=== PATIENT | female | born 1985 | race Caucasian/White ===

== ENCOUNTER 2016-12-05 14:12 | Emergency (ER) | payer BC ==
[2016-12-05] MEDS ORDERED: TETANUS/DIPHTHERIA/PERTUSSIS 0.5 ML SYRINGE IM ONE ×2 (14:27→14:37)
== END 2016-12-05 14:53 | disposition home or self-care (01) ==
DX: S70.311A Abrasion, right thigh, initial encounter (principal); S70.11XA Contusion of right thigh, initial encounter; W54.1XXA Struck by dog, initial encounter; Z23 Encounter for immunization; F17.200 Nicotine dependence, unspecified, uncomplicated

== ENCOUNTER 2017-01-08 21:02 | Emergency (ER) | payer BC ==
[2017-01-09] MEDS ORDERED: HYDROcod/ACETAM 5/325 MG TABLET PO STA (00:29)
[2017-01-09] MEDS ORDERED: CLINDAMYCIN 150 MG CAPSULE PO STA (00:29)
[2017-01-09] MEDS ORDERED: CLINDAMYCIN 150 MG CAPSULE PO ONE (00:37)
[2017-01-09] MEDS ORDERED: HYDROcod/ACETAM 5/325 MG TABLET ONE ×2 (00:37→00:38)
== END 2017-01-09 00:44 | disposition home or self-care (01) ==
DX: K08.89 Other specified disorders of teeth and supporting structures (principal); W54.1XXA Struck by dog, initial encounter; E78.00 Pure hypercholesterolemia, unspecified; M79.7 Fibromyalgia; F17.200 Nicotine dependence, unspecified, uncomplicated
CPT/HCPCS: 99283; A9270

== ENCOUNTER 2017-01-29 13:05 | Outpatient (CLI) | payer BC | END 2017-01-29 13:06 | disposition home or self-care (01) | DX: N85.8 Other specified noninflammatory disorders of uterus (principal); R10.2 Pelvic and perineal pain ==

== ENCOUNTER 2017-03-10 15:50 | Outpatient (CLI) | payer BC | END 2017-03-10 15:51 | disposition home or self-care (01) | DX: Z01.812 Encounter for preprocedural laboratory examination (principal); N92.0 Excessive and frequent menstruation with regular cycle; R10.2 Pelvic and perineal pain; N92.1 Excessive and frequent menstruation with irregular cycle ==

== ENCOUNTER 2017-03-12 08:10 | Day surgery (SDC) | payer BC ==
[~2017-03-12 08:10] MED LIST: ceFAZolin 2 GM/50 ML 50 ML IV ONE
[2017-03-12] MEDS ORDERED: DEXAMETHASONE 4 MG/ML VIAL IVP ONE (08:45)
[2017-03-12] MEDS ORDERED: PROPOFOL 200 MG/20 ML VIAL IVP ONE (08:45)
[2017-03-12] MEDS ORDERED: ROCURONIUM 50 MG/5 ML VIAL IVP ONE (08:45)
[2017-03-12] MEDS ORDERED: LIDOCAINE-PF 2% 10 ML AMP SUBQ ONE (08:45)
[2017-03-12] MEDS ORDERED: NEOSTIGMINE 1 MG/1 ML 10 ML MDV IVP ONE (08:45)
[2017-03-12] MEDS ORDERED: MIDAZOLAM 2 MG/2 ML VIAL IVP ONE (08:45)
[2017-03-12] MEDS ORDERED: SUCCINYLCHOLINE 200 MG/10 ML VIAL IVP ONE (08:45)
[2017-03-12] MEDS ORDERED: ACETAMINOPHEN 1,000 MG/100 ML VIAL IV ONE (08:45)
[2017-03-12] MEDS ORDERED: GLYCOPYRROLATE 1 MG/5 ML VIAL IVP ONE (08:45)
[2017-03-12] MEDS ORDERED: fentaNYL 100 MCG/2 ML VIAL IVP ONE (08:45)
[2017-03-12] MEDS ORDERED: ONDANSETRON 4 MG/2 ML VIAL IVP ONE (08:45)
[2017-03-12] MEDS ORDERED: LACTATED RINGERS 1,000 ML IV ONE ×2 (08:48→11:31)
[2017-03-12] MEDS ORDERED: BUPIVACAINE 0.25%-EPI 1:200000 PF 30 ML VIAL SUBQ ONE (09:43)
[2017-03-12] MEDS ORDERED: FUROSEMIDE 40 MG/4 ML VIAL ONE (11:12)
[2017-03-12] MEDS: HYDROmorphone 1 MG/ML SYRINGE ONE ×4 (11:58→12:33)
[2017-03-12] MEDS ORDERED: KETOROLAC 15 MG/ML VIAL ONE (12:01)
[2017-03-12] MEDS ORDERED: ONDANSETRON 4 MG/2 ML VIAL IVP PRN (13:32)
[2017-03-12] MEDS ORDERED: ALPRAZolam 0.25 MG TABLET PO PRN (13:34)
[2017-03-12] MEDS ORDERED: LACTATED RINGERS 1,000 ML IV SCH (14:00)
[2017-03-12] MEDS: HYDROcod/ACETAM 5/325 MG TABLET PO PRN ×2 (14:01→17:36)
[2017-03-12] MEDS ORDERED: ALPRAZolam 0.25 MG TABLET PO STA (18:30)
[2017-03-12] MEDS ORDERED: ZOLPIDEM 5 MG TABLET PO SCH (21:00)
== END 2017-03-12 19:15 | disposition home or self-care (01) ==
PROC: 0UTC7ZZ Resection of Cervix, Via Natural or Artificial Opening (ICD-10-PCS; 2017-03-12)
PROC: 0UB74ZZ Excision of Bilateral Fallopian Tubes, Percutaneous Endoscopic Approach (ICD-10-PCS; 2017-03-12)
PROC: 0TBB8ZX Excision of Bladder, Via Natural or Artificial Opening Endoscopic, Diagnostic (ICD-10-PCS; 2017-03-12)
PROC: 0UT9FZZ Resection of Uterus, Via Natural or Artificial Opening With Percutaneous Endoscopic Assistance (ICD-10-PCS; principal; 2017-03-12 09:00)
DX: N93.8 Other specified abnormal uterine and vaginal bleeding (principal); R10.31 Right lower quadrant pain; R10.32 Left lower quadrant pain; N84.0 Polyp of corpus uteri; M79.7 Fibromyalgia; N30.10 Interstitial cystitis (chronic) without hematuria; N30.30 Trigonitis without hematuria; N81.10 Cystocele, unspecified; F17.200 Nicotine dependence, unspecified, uncomplicated; Q50.5 Embryonic cyst of broad ligament; Z88.0 Allergy status to penicillin; Z82.49 Family history of ischemic heart disease and other diseases of the circulatory system
CPT/HCPCS: 52204; 58552; 81003; 81025; A9270; J0131; J0690; J1170; J7120

== ENCOUNTER 2017-03-17 14:19 | Outpatient (CLI) | payer BC | END 2017-03-17 14:20 | disposition home or self-care (01) | DX: R42 Dizziness and giddiness (principal); R35.0 Frequency of micturition ==

== ENCOUNTER 2017-11-25 10:14 | Emergency (ER) | payer OTHER, BC ==
--- NOTE | 2017-11-25 11:11 | XRAY Report ---
EXAM: LEFT WRIST RADIOGRAPHY EXAM DATE: 11/25/2017 10:46 AM. CLINICAL HISTORY: Left wrist pain. Schlater a pop in wrist last night while carrying heavy bucket. COMPARISON: 10/30/2013. TECHNIQUE: 4 views. FINDINGS: Bones: No fracture or bone lesion. Joints: Subluxation. Joint spaces are preserved. Soft Tissues: No soft tissue calcification. Possible mild ulnar wrist swelling. IMPRESSION: 1. No fracture, bony malalignment, or arthropathy. 2. Possible mild ulnar wrist swelling. [facility] Referring Provider Line: [phone] SITE ID: [id number]
--- NOTE | 2017-11-25 11:27 | ED Physician Documentation ---
PD HPI UPPER EXT INJURY - Stated complaint Stated Complaint: LT WRIST PX - Chief complaint Chief Complaint: Ext Problem - History obtained from History obtained from: Patient - History of Present Illness Location: Left, Wrist Type of injury: Twist (she was carrying heavy ice buckets and doing repetitive work and had onset of left wrist pain. No direct impact.) Where injury occurred: Work ([employer]) Timing - onset: Yesterday Timing - details: Gradual onset, Still present Improved by: Rest Worsened by: Moving, Palpating Associated symptoms: Weakness. 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 HEENT: None, Other Psych: Anxiety Musculoskeletal: Fibromyalgia, Fatigue Derm: None - Past Surgical History Past Surgical History: Yes General: Appendectomy, Colonoscopy - Present Medications Home Medications: Ambulatory Orders Medication Instructions Recorded Confirmed HYDROcod/ACETAM 5/325 [[place] 5/325] 1 tab PO Q6H PRN #12 tablet 11/25/17 - Allergies Allergies/Adverse Reactions: Allergies Allergy/AdvReac Type Severity Reaction Status Date / Time Penicillins Allergy vomiting Verified 04/09/16 18:17 - Social History Does the pt smoke?: Yes Smoking Status: Current every day smoker Does the pt drink ETOH?: Yes Does the pt have substance abuse?: No - Immunizations Immunizations are current?: Yes - POLST Patient has POLST: No PD ED PE NORMAL - Vitals Vital signs reviewed: Yes - General General: Alert and oriented X 3, Well developed/nourished, Other (appears uncomfortable with wrist movement extension.) - Derm Derm: Normal color, Warm and dry, No rash - Extremities Extremities: Other Results - Vitals Vitals: Oxygen O2 Source Room air - Rads (name of study) wrist Radiology: Prelim report reviewed (normal) PD MEDICAL DECISION MAKING - ED course Complexity details: reviewed results, considered differential (dorsal tendonitis , not tender volar/carpal tunnel area. ), d/w patient Departure - Departure Disposition: Home, Self Care Clinical Impression: Left wrist tendonitis Condition: Stable Record reviewed to determine appropriate education?: Yes Instructions: ED Sprain Wrist Follow-Up: KEVIN BLANKENSHIP [Primary Care Provider] - Prescriptions: HYDROcod/ACETAM 5/325 [[place] 5/325] 1 tab PO Q6H PRN #12 tablet PRN Reason: Pain Comments: Wrist splint when working in using your risk for the next several days to week. Try to lessen the degree of lifting and repetitive motion with that wrist. Use ibuprofen or naproxen 2 tablets twice daily for the next 5-6 days. Add Tylenol or hydrocodone if needed for pain. Recheck if not better over the next week. Discharge Date/Time: 11/25/17 12:02
[2017-11-25] MEDS ORDERED: HYDROcod/ACETAM 5/325 MG TABLET PO STA (11:45)
[2017-11-25 12:03] VITALS: BP 106/60
== END 2017-11-25 12:02 | disposition home or self-care (01) ==
LOC: ED 10:14
DX: M77.9 Enthesopathy, unspecified (principal); E78.00 Pure hypercholesterolemia, unspecified; F17.200 Nicotine dependence, unspecified, uncomplicated; X50.9XXA Other and unspecified overexertion or strenuous movements or postures, initial encounter; Y92.511 Restaurant or cafe as the place of occurrence of the external cause; Y99.0 Civilian activity done for income or pay
CPT/HCPCS: 1040M; 73110; 99283; A9270

== ENCOUNTER 2018-10-16 21:42 | Emergency (ER) | payer BC ==
--- NOTE | 2018-10-16 21:57 | ED Physician Documentation ---
PD HPI NVD - Stated complaint Stated Complaint: NAUSEA - Chief complaint Chief Complaint: Abd Pain - History obtained from History obtained from: Patient - History of Present Illness Timing - onset: Today Timing - details: Abrupt onset Pain level now: 2 (cramping abd. pain) Associated symptoms: Abdominal pain (cramping). No: Fever Contributing factors: No: Sick contact, Bad food, Travel, Recent antibiotics, Alcohol use, Anticoagulated, Diabetes Improved by: Other (no ameliorating factors) Worsened by: Eating Similar symptoms before: Has not had sx before Recently seen: Not recently seen - Additonal information Additional information: c/o nausea, vomiting, diarrhea, with intermittent abdominal cramping since this morning Review of Systems Constitutional: denies: Fever, Chills, Sweats GI: reports: Abdominal Pain (abdominal cramping, intermittent), Nausea, Vomiting, Diarrhea : denies: Dysuria, Frequency, Now EGA (has had hysterectomy) PD PAST MEDICAL HISTORY - Past Medical History Past Medical History: Yes Cardiovascular: High cholesterol Respiratory: None Neuro: None Endocrine/Autoimmune: None GI: None, GERD, 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 HEENT: None, Other Psych: Anxiety Musculoskeletal: Fibromyalgia, Fatigue Derm: None - Past Surgical History Past Surgical History: Yes General: Appendectomy, Colonoscopy - Present Medications Home Medications: Ambulatory Orders Medication Instructions Recorded Confirmed HYDROcod/ACETAM 5/325 [[place] 5/325] 1 tab PO Q6H PRN #12 tablet 11/25/17 Diphenoxylate/Atropine [Lomotil] 1 each PO QID PRN #10 tablet 10/16/18 Ondansetron Odt [Zofran] 4 mg TL Q6H PRN #14 tablet 10/16/18 - Allergies Allergies/Adverse Reactions: Allergies Allergy/AdvReac Type Severity Reaction Status Date / Time Penicillins Allergy vomiting Verified 04/09/16 18:17 - Social History Does the pt smoke?: Yes Smoking Status: Current every day smoker Does the pt drink ETOH?: Yes Does the pt have substance abuse?: No - Immunizations Immunizations are current?: Yes - POLST Patient has POLST: No PD ED PE NORMAL - Vitals Vital signs reviewed: Yes - General General: Alert and oriented X 3, No acute distress, Well developed/nourished - HEENT HEENT: Moist mucous membranes - Cardiac Cardiac: RRR, No murmur - Respiratory Respiratory: No respiratory distress, Clear bilaterally - Abdomen Abdomen: Normal bowel sounds, Soft, Non tender, Non distended - Back Back: No CVA TTP - Derm Derm: Normal color, Warm and dry Results - Vitals Vitals: Vital Signs - 24 hr 10/16/18 10/16/18 10/16/18 21:48 22:25 22:26 Temperature 36.2 C L Heart Rate 86 60 Respiratory 19 17 Rate Blood Pressure 122/90 H 110/72 O2 Saturation 100 99 10/16/18 10/16/18 10/16/18 22:36 23:00 23:03 Temperature Heart Rate 60 Respiratory 17 17 17 Rate Blood Pressure 117/73 O2 Saturation 100 100 100 10/16/18 10/16/18 23:21 23:36 Temperature Heart Rate 71 Respiratory 17 17 Rate Blood Pressure O2 Saturation 100 Oxygen O2 Source Room air - Labs Labs: Laboratory Tests 10/16/18 10/16/18 22:00 22:00 WBC 11.9 H RBC 4.13 L Hgb 14.0 Hct 42.0 MCV 101.7 H MCH 33.9 H MCHC 33.4 RDW 12.2 Plt Count 294 MPV 8.1 Neut # (Auto) 6.4 Lymph # (Auto) 4.8 H [place] # (Auto) 0.4 Eos # (Auto) 0.1 Baso # (Auto) 0.2 H Absolute Nucleated RBC 0.00 Nucleated RBC % 0.0 Sodium 137 Potassium 3.6 Chloride 105 Carbon Dioxide 25 Anion Gap 7.0 BUN 13 Creatinine 0.6 Estimated GFR (MDRD) 114 Glucose 93 Calcium 9.3 Total Bilirubin 0.4 AST 17 ALT 18 Alkaline Phosphatase 39 L Total Protein 7.3 Albumin 4.8 Globulin 2.5 Albumin/Globulin Ratio 1.9 Lipase 26 PD MEDICAL DECISION MAKING - ED course Complexity details: reviewed results, re-evaluated patient, considered differential, d/w patient Departure - Departure Disposition: 01 Home, Self Care Clinical Impression: Gastroenteritis Condition: Good Instructions: ED Gastroenteritis Viral Follow-Up: [facility] [place] [Provider Group] [facility] [Provider Group] Prescriptions: Diphenoxylate/Atropine [Lomotil] 1 each PO QID PRN #10 tablet PRN Reason: Diarrhea Ondansetron Odt [Zofran] 4 mg TL Q6H PRN #14 tablet PRN Reason: Nausea / Vomiting Forms: Activity restrictions Discharge Date/Time: 10/16/18 23:37
[2018-10-16] MEDS ORDERED: SODIUM CHLORIDE 0.9% 1,000 ML IV STA (22:13)
[2018-10-16] MEDS ORDERED: DIPHENOX/ATROPINE 2.5/0.025 MG TABLET PO STA (22:13)
[2018-10-16] MEDS ORDERED: ONDANSETRON 4 MG/2 ML VIAL IVP STA ×2 (22:13→23:12)
[2018-10-16] MEDS ORDERED: ACETAMINOPHEN 325 MG TABLET PO STA (22:25)
[2018-10-16 22:30] LABS: BASOPHILS # (AUTO) 0.2 10^3/uL (0.0-0.1); BASOPHILS % (AUTO) 1.4 %; EOSINOPHILS # (AUTO) 0.1 10^3/uL (0.0-0.7); EOSINOPHILS % (AUTO) 1.1 %; LYMPHOCYTES # (AUTO) 4.8 10^3/uL (1.5-3.5); MEAN CORPUSCULAR HEMOGLOBIN 33.9 pg (27.0-31.0); MEAN CORPUSCULAR HGB CONC 33.4 g/dL (32.0-36.0); MEAN CORPUSCULAR VOLUME 101.7 fL (81.0-99.0); MEAN PLATELET VOLUME 8.1 fL (7.9-10.8); MONOCYTES # (AUTO) 0.4 10^3/uL (0.0-1.0); MONOCYTES % (AUTO) 3.6 %; NEUTROPHILS # (AUTO) 6.4 10^3/uL (1.5-6.6); NEUTROPHILS % (AUTO) 53.9 %; PLT - PLATELET COUNT 294 10^3/uL (130-450); RED BLOOD COUNT 4.13 10^6/uL (4.20-5.40); RED CELL DISTRIBUTION WIDTH 12.2 % (12.0-15.0); WHITE BLOOD COUNT 11.9 x10^3/uL (4.8-10.8)
[2018-10-16 22:43] LABS: ALBUMIN 4.8 g/dL (3.2-5.5); ALBUMIN/GLOBULIN RATIO 1.9 (1.0-2.2); BILIRUBIN,TOTAL 0.4 mg/dL (0.2-1.0); CALCIUM 9.3 mg/dL (8.5-10.3); CREATININE 0.6 mg/dL (0.4-1.0); TOTAL PROTEIN 7.3 g/dL (6.7-8.2)
[2018-10-16 23:04] VITALS: BP 117/73
== END 2018-10-16 23:37 | disposition home or self-care (01) ==
LOC: ED 21:42
DX: K52.9 Noninfective gastroenteritis and colitis, unspecified (principal); R11.2 Nausea with vomiting, unspecified; F17.200 Nicotine dependence, unspecified, uncomplicated
CPT/HCPCS: 36415; 80053; 83690; 85025; 96361; 96374; 96376; 99283; 99284; A9270

== ENCOUNTER 2020-02-15 13:02 | Emergency (ER) | payer BC, MEDICAID ==
[2020-02-15 13:10] VITALS: BP 133/84
--- NOTE | 2020-02-15 13:21 | ED Physician Documentation ---
History of Present Illness - Stated complaint Stated Complaint: RIB PX/FELL - Chief complaint Chief Complaint: General - Additonal information Additional information: Here today with a a 3-4 day history of right lower anterior chest wall pain. She had a ground level, mechanical, fall while intoxicated and struck her chest wall against a speaker box. Has had continued pain that worsened just prior to her arrival. Pain is worse with deep breathes, movement, and direct palpation. Has no gross deformities. Review of Systems Constitutional: denies: Fever, Myalgias, Fatigue Ears: denies: Loss of hearing, Ear pain Throat: denies: Dental pain / toothache Cardiac: reports: Chest pain / pressure. 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 HEENT: None, Other Psych: Anxiety Musculoskeletal: Fibromyalgia, Fatigue Derm: None - Past Surgical History Past Surgical History: Yes General: Appendectomy, Colonoscopy - Present Medications Home Medications: Ambulatory Orders Medication Instructions Recorded Confirmed HYDROcod/ACETAM 5/325 [[place] 5/325] 1 tab PO Q6H PRN #12 tablet 11/25/17 Diphenoxylate/Atropine [Lomotil] 1 each PO QID PRN #10 tablet 10/16/18 Ondansetron Odt [Zofran] 4 mg TL Q6H PRN #14 tablet 10/16/18 - Allergies Allergies/Adverse Reactions: Allergies Allergy/AdvReac Type Severity Reaction Status Date / Time Penicillins Allergy vomiting Verified 02/15/20 13:10 - Social History Does the pt smoke?: Yes Smoking Status: Current every day smoker Does the pt drink ETOH?: Yes Does the pt have substance abuse?: No - Immunizations Immunizations are current?: Yes - POLST Patient has POLST: No PD ED PE NORMAL - General General: Alert and oriented X 3, Well developed/nourished - HEENT HEENT: Atraumatic - Neck Neck: Supple, no meningeal sign - Cardiac Cardiac: RRR, Other (tender to direct palpation at the right anterior lower chest wall ) - Respiratory Respiratory: No: No respiratory distress, Clear bilaterally - Derm Derm: Other (2 cm contusion at the lower right anterior chest wall ) - Neuro Neuro: Alert and oriented X 3, No motor deficit, Normal speech Motor: Obeys Commands Verbal: Oriented Results - Vitals Vitals: Vital Signs - 24 hr 02/15/20 13:07 Temperature 36.5 C Heart Rate 97 Respiratory 16 Rate Blood Pressure 133/84 H O2 Saturation 97 Oxygen O2 Source Room air PD MEDICAL DECISION MAKING - ED course Complexity details: other (Reviewed plain films agree with radiology. Results were discussed This with the patient. She will apply frequent cool compress. Use ibuprofen and Tylenol as needed for comfort. Return precautions were discussed. She will follow-up as needed for any emergent changes or concerns.) Departure - Departure Disposition: 01 Home, Self Care Clinical Impression: Acute pain Condition: Stable Comments: Apply a frequent cold compress to the affected area. Use ibuprofen and Tylenol as needed for comfort. Return to emergency room as needed for any emergent changes or concerns.
--- NOTE | 2020-02-15 14:47 | XRAY Report ---
Reason: right chest wall pain, fall Procedure Date: 02/15/2020 Accession Number: [id number] / [id number] Procedure: XR - Ribs w/PA Chest RT CPT Code: Final Report FULL RESULT: EXAM: RIGHT RIB RADIOGRAPHY EXAM DATE: 02/15/2020 02:19 PM. CLINICAL HISTORY: Right chest wall pain, fall. Fall 4 days ago onto ribs. COMPARISON: CHEST 2 VIEW PA/LAT 08/16/2016 5:23 PM. TECHNIQUE: 1 view of the chest and 2 views of the ribs. FINDINGS: Bones: No displaced fracture or bone lesion. Left convex scoliosis of partially visualized lumbar spine. Lungs: No focal opacities. No pneumothorax. No pleural effusions. Mediastinum: Heart and mediastinal contours are unremarkable. Other: None. IMPRESSION: 1. No displaced rib fracture identified. 2. No acute cardiopulmonary process. [facility]
== END 2020-02-15 15:25 | disposition home or self-care (01) ==
LOC: ED 13:02
DX: S20.211A Contusion of right front wall of thorax, initial encounter (principal); W19.XXXA Unspecified fall, initial encounter; W22.09XA Striking against other stationary object, initial encounter; R07.89 Other chest pain; F17.200 Nicotine dependence, unspecified, uncomplicated
CPT/HCPCS: 99283; 99284

== ENCOUNTER → 2020-07-03 | Outpatient (CLI) | payer MEDICAID ==
[2020-07-03 18:30] LABS: BASOPHILS # (AUTO) 0.1 10^3/uL (0.0-0.1); BASOPHILS % (AUTO) 0.5 %; EOSINOPHILS # (AUTO) 0.1 10^3/uL (0.0-0.7); EOSINOPHILS % (AUTO) 0.8 %; LYMPHOCYTES # (AUTO) 4.6 10^3/uL (1.5-3.5); LYMPHOCYTES % (AUTO) 31.7 %; MEAN CORPUSCULAR HEMOGLOBIN 33.7 pg (27.0-31.0); MEAN CORPUSCULAR HGB CONC 33.1 g/dL (32.0-36.0); MEAN CORPUSCULAR VOLUME 101.8 fL (81.0-99.0); MEAN PLATELET VOLUME 10.3 fL (7.9-10.8); MONOCYTES # (AUTO) 0.6 10^3/uL (0.0-1.0); MONOCYTES % (AUTO) 4.1 %; NEUTROPHILS # (AUTO) 8.9 10^3/uL (1.5-6.6); NEUTROPHILS % (AUTO) 61.9 %; PLT - PLATELET COUNT 301 10^3/uL (130-450); RED BLOOD COUNT 4.45 10^6/uL (4.20-5.40); RED CELL DISTRIBUTION WIDTH 12.4 % (12.0-15.0); WHITE BLOOD COUNT 14.4 x10^3/uL (4.8-10.8)
[2020-07-03 18:36] LABS: ALBUMIN 4.7 g/dL (3.2-5.5); ALBUMIN/GLOBULIN RATIO 1.7 (1.0-2.2); BILIRUBIN,TOTAL 0.5 mg/dL (0.2-1.0); CREATININE 0.6 mg/dL (0.4-1.0); TOTAL PROTEIN 7.4 g/dL (6.7-8.2)
== END ==
LOC: LAB.WCP 14:38
PROVIDERS: ATTEND Physician Assistant
DX: Z00.00 Encounter for general adult medical examination without abnormal findings (principal); D72.829 Elevated white blood cell count, unspecified
CPT/HCPCS: 36415; 80050; 80061; 83721

== ENCOUNTER 2020-08-30 13:07 | Outpatient (CLI) | payer MEDICAID ==
--- NOTE | 2020-08-31 13:18 | Mammography Report ---
BILATERAL DIGITAL DIAGNOSTIC MAMMOGRAM 3D/2D: 08/30/2020 CLINICAL: Occasional right breast pain. Comparison is made to exams dated: 08/10/2015 ultrasound, 08/10/2015 ultrasound, and 08/10/2015 mammogr [facility]. The tissue of both breasts is heterogeneously dense. This may lower the sensitivity of mammography. No significant masses, calcifications, or other findings are seen in either breast. IMPRESSION: NEGATIVE There is no abnormality seen in the right breast to correspond with the diffuse pain, however, clinic al correlation is recommended. There is no mammographic evidence of malignancy. This exam was interpreted at Station ID: [id number]. NOTE: For mammograms, a report in lay terms will be sent to the patient. Approximately 15% of breast malignancies will not be visualized mammographically. In the management of a palpable breast mass, a negative mammogram must not discourage biopsy of a clinically suspicious lesion. Electronically Signed By: Luis Manuel Paredes M.D. [email or web address]:08/30/2020 14:56:32 ACR BI-RADS Category 1: Negative 3341F PARENCHYMAL PATTERN: (D) - The breast(s) demonstrate(s) heterogeneously dense fibroglandular [place]. BI-RADS CATEGORY: (1) - 1 RECOMMENDATION: (ADDMAM) - Recommend additional mammographic views. recall n/a LATERALITY: (B)
== END 2020-08-30 13:08 | disposition home or self-care (01) ==
LOC: DI 13:07
PROVIDERS: ATTEND Physician Assistant
DX: N64.4 Mastodynia (principal)
CPT/HCPCS: 77066

== ENCOUNTER 2020-09-03 15:10 | Emergency (ER) | payer MEDICAID ==
[2020-09-03 16:18] LABS: BASOPHILS # (AUTO) 0.1 10^3/uL (0.0-0.1); BASOPHILS % (AUTO) 0.7 %; EOSINOPHILS # (AUTO) 0.2 10^3/uL (0.0-0.7); EOSINOPHILS % (AUTO) 1.3 %; HGB - HEMOGLOBIN 14.5 g/dL (12.0-16.0); LYMPHOCYTES # (AUTO) 3.1 10^3/uL (1.5-3.5); LYMPHOCYTES % (AUTO) 23.2 %; MEAN CORPUSCULAR HEMOGLOBIN 34.6 pg (27.0-31.0); MEAN CORPUSCULAR HGB CONC 34.4 g/dL (32.0-36.0); MEAN CORPUSCULAR VOLUME 100.7 fL (81.0-99.0); MEAN PLATELET VOLUME 9.7 fL (7.9-10.8); MONOCYTES # (AUTO) 0.6 10^3/uL (0.0-1.0); MONOCYTES % (AUTO) 4.8 %; NEUTROPHILS # (AUTO) 9.2 10^3/uL (1.5-6.6); NEUTROPHILS % (AUTO) 68.9 %; PLT - PLATELET COUNT 283 10^3/uL (130-450); RED BLOOD COUNT 4.19 10^6/uL (4.20-5.40); RED CELL DISTRIBUTION WIDTH 12.5 % (12.0-15.0); WHITE BLOOD COUNT 13.3 x10^3/uL (4.8-10.8)
--- NOTE | 2020-09-03 16:30 | ED Physician Documentation ---
PD HPI HEADACHE - Stated complaint Stated Complaint: HEADACHE, DIZZINESS - Chief complaint Chief Complaint: Neuro - History obtained from History obtained from: Patient - History of Present Illness Timing - onset: Today Timing - onset during: Other (shower) Timing - duration: Hours (1) Timing - details: Abrupt onset Pain level max: 8 Pain level now: 6 Location: Global Quality: Throbbing, Aching Associated symptoms: No: Fever, Stiff neck, Nausea, Vomiting, Weakness, Numbness, Syncope, Seizure, Eye pain, Vision changes Improved by: Rest Worsened by: Light, Noise Contributing factors: No: Anticoagulated, Possible carbon monoxide, Hypertension, Recent illness, Trauma Similar symptoms before: Diagnosis (headaches) Recently seen: Not recently seen - Additional information Additional information: 35-year-old female presents to the emergency department stating she was taking a shower today when she developed a headache, described as holocranial while she was in the shower today. She states she does have a history of headaches but this seems worse. Took Tylenol without relief. She states it was a sudden onset headache. No history of aneurysms. No history of recent illness. No fevers, chills, cough. Denies any possibility of . She is not breast-feeding. Review of Systems Constitutional: denies: Fever, Chills Eyes: denies: Loss of vision, Decreased vision Ears: denies: Loss of hearing, Ear pain, Drainage/discharge Nose: denies: Rhinorrhea / runny nose, Congestion, Epistaxis, Sinus pressure / p ain, Foreign Body Throat: denies: Sore throat Cardiac: denies: Chest pain / pressure Respiratory: denies: Cough GI: denies: Nausea, Vomiting, Diarrhea : denies: Now EGA Skin: denies: Rash Musculoskeletal: denies: Neck pain, Back pain Neurologic: denies: Headache PD PAST MEDICAL HISTORY - Past Medical History Cardiovascular: High cholesterol Respiratory: None Neuro: None Endocrine/Autoimmune: None GI: 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, GERD, 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 HEENT: None, Other Psych: Anxiety Musculoskeletal: Fibromyalgia, Fatigue Derm: None - Past Surgical History Past Surgical History: Yes General: Appendectomy, Colonoscopy - Present Medications Home Medications: Ambulatory Orders Medication Instructions Recorded Confirmed Metoclopramide [Reglan] 10 mg PO DAILY 08/18/20 08/18/20 Pantoprazole [Protonix] 40 mg PO DAILY 08/18/20 08/18/20 hydrOXYzine HCL [Hydroxyzine HCl] 25 mg PO DAILY PM 08/18/20 08/18/20 - Allergies Allergies/Adverse Reactions: Allergies Allergy/AdvReac Type Severity Reaction Status Date / Time Penicillins Allergy vomiting Verified 09/03/20 15:13 - Social History Does the pt smoke?: Yes Smoking Status: Current every day smoker Does the pt drink ETOH?: Yes Does the pt have substance abuse?: No - Immunizations Immunizations are current?: Yes - POLST Patient has POLST: No PD ED PE NORMAL - Vitals Vital signs reviewed: Yes - General General: Alert and oriented X 3, No acute distress - HEENT HEENT: Atraumatic, PERRL, EOMI, Ears normal, Moist mucous membranes, Pharynx benign - Neck Neck: Supple, no meningeal sign, No bony TTP - Cardiac Cardiac: RRR - Respiratory Respiratory: No respiratory distress, Clear bilaterally - Abdomen Abdomen: Soft, Non tender, Non distended - Derm Derm: Warm and dry - Extremities Extremities: No edema - Neuro Neuro: Alert and oriented X 3, 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 NIH stroke scale of 0) Eye Opening: Spontaneous Motor: Obeys Commands Verbal: Oriented GCS Score: 15 - Psych Psych: Normal mood, Normal affect Results - Vitals Vitals: Vital Signs - 24 hr 09/03/20 09/03/20 15:13 18:13 Temperature 36.5 C Heart Rate 95 85 Respiratory 16 16 Rate Blood Pressure 138/87 H 133/76 H O2 Saturation 98 99 Oxygen O2 Source Room air - Labs Labs: Laboratory Tests 09/03/20 09/03/20 09/03/20 16:12 16:13 16:13 WBC 13.3 H RBC 4.19 L Hgb 14.5 Hct 42.2 MCV 100.7 H MCH 34.6 H MCHC 34.4 RDW 12.5 Plt Count 283 MPV 9.7 Neut # (Auto) 9.2 H Lymph # (Auto) 3.1 [place] # (Auto) 0.6 Eos # (Auto) 0.2 Baso # (Auto) 0.1 Absolute Nucleated RBC 0.00 Nucleated RBC % 0.0 Sodium 139 Potassium 4.2 Chloride 105 Carbon Dioxide 22 Anion Gap 12.0 BUN 10 Creatinine 0.7 Estimated GFR (MDRD) 95 Glucose 123 H Calcium 9.2 Serum HCG, Qual NEGATIVE - Rads (name of study) CT angio head Radiology: Prelim report reviewed, EMP read contemporaneously, See rad report (No acute abnormality) PD MEDICAL DECISION MAKING - ED course Complexity details: reviewed results, re-evaluated patient, considered differential, d/w patient, d/w family ED course: Headache improved with Toradol and Fioricet. No acute findings on CT angiogram of the head. No evidence of meningitis, encephalitis, subarachnoid hemorrhage, tumor, mass. We will have her follow-up with her doctor for further care. NIH stroke scale 0. Normal cerebellar test. Normal neuro exam. Normal gait. Patient and family counseled regarding signs and symptoms for which I believe and urgent re-evaluation would be necessary. Patient with good understanding of and agreement to plan and is comfortable going home at this time This document was made in part using voice recognition software. While efforts are made to proofread this document, sound alike and grammatical errors may occur. Departure - Departure Disposition: 01 Home, Self Care Clinical Impression: Headache Qualifiers: Headache type: unspecified Headache chronicity pattern: acute headache Intractability: not intractable Qualified Code(s): R51.9 - Headache, unspecified Condition: Good Instructions: ED Cephalgia Unspecified Follow-Up: Deandra Rosales PA [Primary Care Provider] - Within 1 week Comments: Your CT and angiogram of your head are normal. There are no aneurysms or evidence of bleeding. Go home and rest tonight. Return if you worsen. Follow- up with your doctor for further care.
[2020-09-03 16:31] LABS: CALCIUM 9.2 mg/dL (8.5-10.3); CREATININE 0.7 mg/dL (0.4-1.0)
[2020-09-03] MEDS ORDERED: IOVERSOL 320 100 ML VIAL IVP ONE ×2 (16:46→17:41)
[2020-09-03] MEDS ORDERED: BUTALB/ACETAM/CAFF 50/325/40MG TABLET PO STA (17:06)
--- NOTE | 2020-09-03 17:13 | CT Report ---
PROCEDURE: ANGIO HEAD W/WO INDICATIONS: headache, holocranial CONTRAST: IV CONTRAST: Optiray 320 ml: 80 PO CONTRAST: *NO PO CONTRAST TECHNIQUE: Precontrast 4.5 mm thick angled axial sections acquired from the foramen magnum to the vertex. Afte r the administration of intravenous contrast, 1 mm thick sections acquired through the [place] of [place] is. Postcontrast 4.5 mm thick sections then re-acquired from the foramen magnum to the vertex. 3-di mensional fdmczuk-dpjgfzaeh-snumxsbqab (MIP) and/or volume rendering reformats were acquired of the c entral intracranial vasculature. For radiation dose reduction, the following was used: automated ex posure control, adjustment of mA and/or kV according to patient size. COMPARISON: 06/16/2015, head CT FINDINGS: Image quality: Diagnostic. Anterior circulation: Intracranial internal carotid arteries are normal in size and flow. The flow within the paired anterior cerebral arteries is normal and symmetric. The flow within the middle cer ebral arteries is normal and symmetric. The anterior communicating artery is not definitely seen. N o aneurysms are seen. Posterior circulation: Visualized portions of the vertebral arteries demonstrate normal caliber, and join to form a normal appearing basilar artery. Flow within the posterior cerebral arteries is norm al and symmetric. No aneurysms are seen. CSF spaces: Ventricles are normal in size and shape. Basal cisterns are patent. No extra-axial flu id collections. Brain: No midline shift. No intracranial bleeds or masses. [place]-white matter interface appears int act. Skull and face: Calvarium and facial bones appear intact, without suspicious lesions. Sinuses: Visualized sinuses and mastoids are clear. IMPRESSION: A cause of headache cannot be seen on these images. No intracranial hemorrhage is seen. No significant intracranial abnormality is seen. No masses or abnormal enhancement can be seen. No significant intracranial arterial abnormalities are seen. Reviewed by: Jorge Sarmiento MD on 09/03/2020 4:12 PM AKDT Approved by: Jorge Sarmiento MD on 09/03/2020 4:12 PM AKDT Station ID: [id number]
[2020-09-03] MEDS ORDERED: ONDANSETRON 4 MG/2 ML VIAL IVP STA (17:15)
[2020-09-03 17:31] LABS: HCG,QUALITATIVE BLOOD NEGATIVE
[2020-09-03] MEDS ORDERED: KETOROLAC 30 MG/ML VIAL IVP STA (17:59)
[2020-09-03 18:13] VITALS: BP 133/76
== END 2020-09-03 18:13 | disposition home or self-care (01) ==
LOC: ED 15:10
DX: R51.9 Headache, unspecified (principal); F17.200 Nicotine dependence, unspecified, uncomplicated
CPT/HCPCS: 36415; 70496; 80048; 84703; 85025; 96374; 96375; 99282; 99284; A9270; Q9967

== ENCOUNTER 2020-09-08 11:27 | Day surgery (SDC) | payer MEDICAID ==
[~2020-09-08 11:27] MED LIST changes: +LIDO GARGLE 30 ML BOTTLE ONE; -ceFAZolin 2 GM/50 ML 50 ML IV ONE
[2020-09-08] MEDS ORDERED: MIDAZOLAM 2 MG/2 ML VIAL IVP ONE (11:28)
[2020-09-08] MEDS ORDERED: fentaNYL 250 MCG/5 ML VIAL IVP ONE (11:28)
[2020-09-08] MEDS ORDERED: LACTATED RINGERS 1,000 ML IV ONE ×2 (11:34→12:32)
[2020-09-08 13:07] VITALS: BP 124/72
== END 2020-09-08 11:28 | disposition home or self-care (01) ==
LOC: SDS 11:27
PROVIDERS: ATTEND Surgery
PROC: 0DB78ZX Excision of Stomach, Pylorus, Via Natural or Artificial Opening Endoscopic, Diagnostic (ICD-10-PCS; 2020-09-08)
PROC: 0DB38ZX Excision of Lower Esophagus, Via Natural or Artificial Opening Endoscopic, Diagnostic (ICD-10-PCS; 2020-09-08)
PROC: 0DB48ZX Excision of Esophagogastric Junction, Via Natural or Artificial Opening Endoscopic, Diagnostic (ICD-10-PCS; 2020-09-08)
PROC: 0DB98ZX Excision of Duodenum, Via Natural or Artificial Opening Endoscopic, Diagnostic (ICD-10-PCS; principal; 2020-09-08 08:45)
DX: K21.9 Gastro-esophageal reflux disease without esophagitis (principal); R10.13 Epigastric pain; F17.200 Nicotine dependence, unspecified, uncomplicated
CPT/HCPCS: 43239; 87081; A9270; J3010; J7120

== ENCOUNTER 2021-04-12 08:00 | Outpatient (CLI) | payer MEDICAID ==
[2021-04-12 18:36] LABS: THYROID STIMULATING HORMONE 0.87 uIU/mL (0.34-5.60)
== END 2021-04-12 23:59 | disposition home or self-care (01) ==
LOC: LAB.WCP 08:00
PROVIDERS: ATTEND Physician Assistant Medical
DX: E53.8 Deficiency of other specified B group vitamins (principal)
CPT/HCPCS: 36415; 82607; 84443

== ENCOUNTER 2022-04-16 11:45 | Emergency (ER) | payer OTHER, MEDICAID ==
[2022-04-16 11:55] VITALS: BP 139/95
[2022-04-16] MEDS ORDERED: KETOROLAC 60 MG/2 ML VIAL IM STA (13:14)
--- NOTE | 2022-04-16 13:17 | ED Physician Documentation ---
History of Present Illness - Stated complaint Stated Complaint: BACK PX - Chief complaint Chief Complaint: Back Pain - History obtained from History obtained from: Patient - Additonal information Additional information: The patient comes to the emergency department chief complaint of low back pain after a straining injury last week. The patient states she was lifting a heavy trash bag at work and swung it up and over the edge of a dumpster, when she felt a twinge in her right back musculature. Patient states that she has noticed over the last week that the pain seems to have migrated into her low back and right buttock and that she has pain shooting down her right leg. No numbness or tingling. No weakness. No loss of bowel or bladder function. No abdominal pain. No other injuries. Review of Systems Ten Systems: 10 systems reviewed and negative Constitutional: reports: Reviewed and negative Eyes: reports: Reviewed and negative Ears: reports: Reviewed and negative Nose: reports: Reviewed and negative Throat: reports: Reviewed and negative Cardiac: reports: Reviewed and negative Respiratory: reports: Reviewed and negative GI: reports: Reviewed and negative : reports: Reviewed and negative Skin: reports: Reviewed and negative Musculoskeletal: reports: Back pain Neurologic: reports: Reviewed and negative Psychiatric: reports: Reviewed and negative Endocrine: reports: Reviewed and negative Immunocompromised: reports: Reviewed and negative PD PAST MEDICAL HISTORY - Past Medical History Past Medical History: Yes Cardiovascular: Other Respiratory: None Neuro: None Endocrine/Autoimmune: None GI: GERD, 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 : None HEENT: None, Other Psych: Anxiety Musculoskeletal: Fibromyalgia, Fatigue Derm: None - Past Surgical History Past Surgical History: Yes General: Appendectomy, Colonoscopy, EGD /INFIRMARY ATTENDANT: Hysterectomy - Present Medications Home Medications: Ambulatory Orders Medication Instructions Recorded Confirmed Omeprazole 20 mg PO DAILY 09/08/20 04/16/22 Cyclobenzaprine [Flexeril] 10 mg PO TID PRN #10 tablet 04/16/22 predniSONE [Deltasone] 60 mg PO DAILY 3 Days #9 tablet 04/16/22 - Allergies Allergies/Adverse Reactions: Allergies Allergy/AdvReac Type Severity Reaction Status Date / Time Penicillins Allergy vomiting Verified 04/16/22 11:53 - Social History Does the pt smoke?: Yes Smoking Status: Current every day smoker Does the pt drink ETOH?: Yes Does the pt have substance abuse?: No - Immunizations Immunizations are current?: No Immunizations: Other immun not current - POLST Patient has POLST: No PD ED PE NORMAL - Vitals Vital signs reviewed: Yes - General General: Alert and oriented X 3, No acute distress, Well developed/nourished - HEENT HEENT: Atraumatic, PERRL, EOMI, Moist mucous membranes - Neck Neck: Supple, no meningeal sign - Cardiac Cardiac: Strong equal pulses - Respiratory Respiratory: No respiratory distress - Abdomen Abdomen: Soft, Non tender, Non distended - Back Back: No CVA TTP, Other (Moderate tenderness to palpation over L5 area over the spine itself. 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 She was deemed stable for d/c home, and we have discussed symptomatic management and the usual indications for return. Departure - Departure Disposition: 01 Home, Self Care Clinical Impression: Lumbar strain Qualifiers: Encounter type: initial encounter Qualified Code(s): S39.012A - Strain of muscle, fascia and tendon of lower back, initial encounter Condition: Stable Instructions: ED Sprain Strain Lumbar Prescriptions: predniSONE [Deltasone] 60 mg PO DAILY 3 Days #9 tablet Cyclobenzaprine [Flexeril] 10 mg PO TID PRN #10 tablet PRN Reason: Spasms Comments: Your x-rays look good. Please avoid heavy lifting or weighted rotational activities with your core/spine until you are feeling better. Please follow-up with your primary care physician as needed. Discharge Date/Time: 04/16/22 14:09
--- NOTE | 2022-04-16 13:48 | XRAY Report ---
PROCEDURE: Lumbar Spine 2 View INDICATIONS: low back pain/injury TECHNIQUE: 2 views of the lumbar spine were acquired. COMPARISON: CT abdomen and pelvis dated 02/21/2016. FINDINGS: Bones: 5 [id number] vertebrae are present. There is mild levocurvature of the mid lumbar spine . This is likely related to patient positioning and/or muscle spasms. AP alignment is within normal l imits. No acute vertebral body compression fractures. No suspicious bony lesions. Soft tissues: Overlying bowel gas pattern is normal. No suspicious soft tissue calcifications. IMPRESSION: Lumbar spine without acute radiographic abnormalities. Mild levocurvature of the mid lum bar spine likely related to positioning and/or concurrent muscle spasms. Reviewed by: Aime Mejia MD on 04/16/2022 1:46 PM PDT Approved by: Aime Mejia MD on 04/16/2022 1:46 PM PDT Station ID: [id number]
== END 2022-04-16 14:09 | disposition home or self-care (01) ==
LOC: ED 11:45
DX: S39.012A Strain of muscle, fascia and tendon of lower back, initial encounter (principal); X50.0XXA Overexertion from strenuous movement or load, initial encounter; Y99.0 Civilian activity done for income or pay; F17.200 Nicotine dependence, unspecified, uncomplicated
CPT/HCPCS: 96372; 99283

== ENCOUNTER 2022-06-06 12:57 | Outpatient (CLI) | payer MEDICAID | END 2022-06-06 12:58 | disposition home or self-care (01) | LOC: MAC.MOP 12:57 | PROVIDERS: ATTEND Nurse Practitioner | DX: E53.8 Deficiency of other specified B group vitamins (principal) | CPT/HCPCS: 93246 ==

== ENCOUNTER 2022-07-17 14:07 | Emergency (ER) | payer MEDICAID ==
--- NOTE | 2022-07-17 14:28 | ED Physician Documentation ---
PD HPI CHEST PAIN - Stated complaint Stated Complaint: CHEST PX - Chief complaint Chief Complaint: Cardiac - History obtained from History obtained from: Patient - History of Present Illness Timing - onset: Yesterday Timing - onset during: Rest, Light activity Timing - duration: Days (2) Timing - details: Intermittant (she is noting feeling of irregular heart beats c/w recent Dx PVCs. She is also noting pain right side of neck itnermittently. These are not strictly concurrent. No visual change. No focal weakness. No trouble speaking.) Quality: Tightness, Aching Location: Substernal, Right neck Radiation: Neck (right side up to the ear area) Improved by: No: Rest Worsened by: No: Exertion, Inspiration, Movement, Palpation Associated symptoms: No: Shortness of air, Feeling faint / dizzy Similar symptoms before: Diagnosis (she has had the skipping/irregular heart evaluated with ECHO/ stress test few weeks ago at [facility] ER/OBS status. Normal labs troponins. Patient pulled up labs ECHO, Stress test results on her MyChart on her phone. Dx with PVCs. No ischemic heart disease. EF 55% with just mild MR on ECHO. labs WNL.) Recently seen: Emergency Dept Review of Systems Constitutional: denies: Fever, Chills Nose: denies: Rhinorrhea / runny nose Throat: denies: Sore throat, Swollen tonsils Cardiac: reports: Palpitations. denies: Pedal edema, Calf pain Respiratory: denies: Cough GI: denies: Abdominal Pain, Nausea, Vomiting Psychiatric: reports: Insomnia (mild). 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: Hysterectomy - Present Medications Home Medications: Ambulatory Orders Medication Instructions Recorded Confirmed Omeprazole 20 mg PO DAILY 09/08/20 04/16/22 Cyclobenzaprine [Flexeril] 10 mg PO TID PRN #10 tablet 04/16/22 predniSONE [Deltasone] 60 mg PO DAILY 3 Days #9 tablet 04/16/22 diltiaZEM CD [Cardizem Cd] 120 mg PO DAILY 15 Days #15 cap 07/17/22 - Allergies Allergies/Adverse Reactions: Allergies Allergy/AdvReac Type Severity Reaction Status Date / Time Penicillins Allergy vomiting Verified 07/17/22 14:26 - Living Situation Living Situation: reports: With family Living Arrangement: reports: At home - Social History Does the pt smoke?: Yes Smoking Status: Current every day smoker Does the pt drink ETOH?: Yes ETOH Use: Other (just occasional) Does the pt have substance abuse?: No - Immunizations Immunizations are current?: No Immunizations: Other immun not current - POLST Patient has POLST: No PD ED PE NORMAL - Vitals Vital signs reviewed: Yes - General General: Alert and oriented X 3, No acute distress, Well developed/nourished - HEENT HEENT: Pharynx benign - Neck Neck: Supple, no meningeal sign, No adenopathy, Other (some tenderness along right anterior portion of SCM muscle up to the preauricular area. No redness nor rash. ) - Cardiac Cardiac: RRR, No murmur - Respiratory Respiratory: No respiratory distress, Clear bilaterally - Abdomen Abdomen: Soft, Non tender - Derm Derm: Normal color, Warm and dry - Extremities Extremities: Normal ROM s pain, No edema, No calf tenderness / cord - Neuro Neuro: Alert and oriented X 3, No motor deficit, No sensory deficit, Normal speech Results - Vitals Vitals: Oxygen O2 Source Room air - EKG (time done) 14:16 Rate: Rate (enter#) (74) Rhythm: NSR [place]: Normal Intervals: Normal [place] QRS: Normal Ischemia: Normal ST segments. No: ST elevation c/w ischemia, ST depression - Labs Labs: Laboratory Tests 07/17/22 07/17/22 07/17/22 14:27 14:27 14:27 WBC 11.2 H RBC 4.38 Hgb 15.1 Hct 43.6 MCV 99.5 H MCH 34.5 H MCHC 34.6 RDW 12.7 Plt Count 319 MPV 9.8 Neut # (Auto) 6.5 Lymph # (Auto) 3.8 H Moca # (Auto) 0.5 Eos # (Auto) 0.2 Baso # (Auto) 0.1 Absolute Nucleated RBC 0.00 Nucleated RBC % 0.0 Sodium 135 Potassium 4.1 Chloride 102 Carbon Dioxide 25 Anion Gap 8.0 BUN 14 Creatinine 0.6 Estimated GFR (MDRD) 112 Glucose 97 Calcium 9.6 Magnesium Total Bilirubin 0.6 AST 17 ALT 26 Alkaline Phosphatase 37 L Troponin I High Sens 2.6 B-Natriuretic Peptide Total Protein 7.0 Albumin 4.3 Globulin 2.7 Albumin/Globulin Ratio 1.6 Lipase 26 TSH Cortisol 07/17/22 07/17/22 07/17/22 14:27 14:27 14:27 WBC RBC Hgb Hct MCV MCH MCHC RDW Plt Count MPV Neut # (Auto) Lymph # (Auto) Moca # (Auto) Eos # (Auto) Baso # (Auto) Absolute Nucleated RBC Nucleated RBC % Sodium Potassium Chloride Carbon Dioxide Anion Gap BUN Creatinine Estimated GFR (MDRD) Glucose Calcium Magnesium 2.0 Total Bilirubin AST ALT Alkaline Phosphatase Troponin I High Sens B-Natriuretic Peptide 13 Total Protein Albumin Globulin Albumin/Globulin Ratio Lipase TSH 0.85 Cortisol 10.9 PD MEDICAL DECISION MAKING - ED course Complexity details: reviewed results (Since she has had recent ECHO with just m ild MR and noraml EF 55% and nuclear stress that was okay, I did not feel workup imaging was needed.), considered differential (the neck pain seems muscular. It should not relate to HR going faster. Reverse may be true in that her HR may feel irregular when her neck is hurting. ), d/w patient Departure - Departure Disposition: 01 Home, Self Care Clinical Impression: Neck pain on right side, PVCs (premature ventricular contractions) Condition: Stable Record reviewed to determine appropriate education?: Yes Instructions: ED Neck Pain No Trauma, ED Palpitations Follow-Up: Deandra Ascencio PA-C [Primary Care Provider] - Prescriptions: diltiaZEM CD [Cardizem Cd] 120 mg PO DAILY 15 Days #15 cap Comments: You are not having any PVCs here. You could try a low-dose diltiazem daily to see if it reduces the frequency of them overall. Discontinue it if you are feeling lightheaded or such with use of it. Your basic electrolytes and thyroid function and cortisol/adrenal tests are normal. Given that you had a recent normal echocardiogram (essentially normal which is the mild mitral valve regurgitation) and stress test, it does not sound like a intrinsic heart disease or ischemic heart disease. I would not expect the pain you are having in the neck to be related necessarily. You can use some Tylenol ibuprofen if needed for the pain. Follow-up with your primary care. Call the company for the heart monitor patch and see if you are able to just mail it in with a regular tape rather than the tape it is supposed to have. Discharge Date/Time: 07/17/22 16:45
[2022-07-17 14:54] LABS: BASOPHILS # (AUTO) 0.1 10^3/uL (0.0-0.1); BASOPHILS % (AUTO) 0.6 %; EOSINOPHILS # (AUTO) 0.2 10^3/uL (0.0-0.7); EOSINOPHILS % (AUTO) 1.5 %; HCT - HEMATOCRIT 43.6 % (37.0-47.0); HGB - HEMOGLOBIN 15.1 g/dL (12.0-16.0); LYMPHOCYTES # (AUTO) 3.8 10^3/uL (1.5-3.5); LYMPHOCYTES % (AUTO) 33.9 %; MEAN CORPUSCULAR HEMOGLOBIN 34.5 pg (27.0-31.0); MEAN CORPUSCULAR HGB CONC 34.6 g/dL (32.0-36.0); MEAN CORPUSCULAR VOLUME 99.5 fL (81.0-99.0); MEAN PLATELET VOLUME 9.8 fL (7.9-10.8); MONOCYTES # (AUTO) 0.5 10^3/uL (0.0-1.0); MONOCYTES % (AUTO) 4.7 %; NEUTROPHILS # (AUTO) 6.5 10^3/uL (1.5-6.6); NEUTROPHILS % (AUTO) 58.7 %; PLT - PLATELET COUNT 319 10^3/uL (130-450); RED BLOOD COUNT 4.38 10^6/uL (4.20-5.40); RED CELL DISTRIBUTION WIDTH 12.7 % (12.0-15.0); WHITE BLOOD COUNT 11.2 x10^3/uL (4.8-10.8)
[2022-07-17 15:04] LABS: ALBUMIN 4.3 g/dL (3.2-5.5); ALBUMIN/GLOBULIN RATIO 1.6 (1.0-2.2); BILIRUBIN,TOTAL 0.6 mg/dL (0.2-1.0); CALCIUM 9.6 mg/dL (8.5-10.3); CREATININE 0.6 mg/dL (0.4-1.0); POTASSIUM 4.1 mmol/L (3.5-5.0)
[2022-07-17] MEDS ORDERED: SODIUM CHLORIDE 0.9% 1,000 ML IV STA (15:09)
--- NOTE | 2022-07-17 15:29 | XRAY Report ---
PROCEDURE: Chest 1 View X-Ray INDICATIONS: Chest pain TECHNIQUE: One view of the chest was acquired. COMPARISON: 08/16/2016, 02/15/2020 FINDINGS: Surgical changes and devices: None. Lungs and pleura: No pleural effusions or pneumothorax. Lungs are clear. Mediastinum: Mediastinal contours appear normal. Heart size is normal. Bones and chest wall: No suspicious bony lesions. Overlying soft tissues appear unremarkable. IMPRESSION: No acute cardiopulmonary pathology. Reviewed by: Pancho Charles MD on 07/17/2022 3:28 PM PDT Approved by: Pancho Charles MD on 07/17/2022 3:28 PM PDT Station ID: [id number]
[2022-07-17 15:40] LABS: CORTISOL 10.9 ug/dL
[2022-07-17 15:44] LABS: THYROID STIMULATING HORMONE 0.85 uIU/mL (0.34-5.60)
[2022-07-17] MEDS ORDERED: KETOROLAC 15 MG/ML VIAL IVP STA (15:49)
[2022-07-17] MEDS ORDERED: ACETAMINOPHEN 325 MG TABLET PO STA (15:49)
[2022-07-17 16:47] VITALS: BP 113/71
== END 2022-07-17 16:45 | disposition home or self-care (01) ==
LOC: ED 14:07
DX: I49.3 Ventricular premature depolarization (principal); M54.2 Cervicalgia; F17.200 Nicotine dependence, unspecified, uncomplicated
CPT/HCPCS: 36415; 71045; 80053; 82533; 83690; 83735; 83880; 84443; 84484; 85025; 93005; 96374; 99284; A9270

== ENCOUNTER 2022-11-27 12:41 | Emergency (ER) | payer MEDICAID ==
[2022-11-27 13:34] LABS: BASOPHILS # (AUTO) 0.1 10^3/uL (0.0-0.1); BASOPHILS % (AUTO) 0.4 %; EOSINOPHILS # (AUTO) 0.2 10^3/uL (0.0-0.7); HCT - HEMATOCRIT 42.2 % (37.0-47.0); HGB - HEMOGLOBIN 14.2 g/dL (12.0-16.0); LYMPHOCYTES # (AUTO) 3.9 10^3/uL (1.5-3.5); LYMPHOCYTES % (AUTO) 24.3 %; MEAN CORPUSCULAR HEMOGLOBIN 33.5 pg (27.0-31.0); MEAN CORPUSCULAR HGB CONC 33.6 g/dL (32.0-36.0); MEAN CORPUSCULAR VOLUME 99.5 fL (81.0-99.0); MEAN PLATELET VOLUME 9.5 fL (7.9-10.8); MONOCYTES # (AUTO) 0.6 10^3/uL (0.0-1.0); MONOCYTES % (AUTO) 3.6 %; NEUTROPHILS # (AUTO) 11.3 10^3/uL (1.5-6.6); NEUTROPHILS % (AUTO) 70.2 %; PLT - PLATELET COUNT 296 10^3/uL (130-450); RED BLOOD COUNT 4.24 10^6/uL (4.20-5.40)
[2022-11-27 13:49] LABS: ALBUMIN 4.4 g/dL (3.2-5.5); ALBUMIN/GLOBULIN RATIO 1.6 (1.0-2.2); BILIRUBIN,TOTAL 0.8 mg/dL (0.2-1.0); CALCIUM 9.2 mg/dL (8.5-10.3); CREATININE 0.6 mg/dL (0.4-1.0); POTASSIUM 4.1 mmol/L (3.5-5.0); TOTAL PROTEIN 7.1 g/dL (6.7-8.2)
--- NOTE | 2022-11-27 14:43 | XRAY Report ---
PROCEDURE: Chest 1 View X-Ray INDICATIONS: Chest pain TECHNIQUE: One view of the chest was acquired. COMPARISON: CXR. FINDINGS: Surgical changes and devices: None. Lungs and pleura: No pleural effusions or pneumothorax. Lungs are clear. Mediastinum: Mediastinal contours appear unchanged. Heart size is normal. Bones and chest wall: No suspicious bony lesions. Overlying soft tissues appear unremarkable. IMPRESSION: No acute cardiopulmonary abnormality. Reviewed by: Tanmay Kellogg MD on 11/27/2022 2:42 PM [facility] Approved by: Tanmay Kellogg MD on 11/27/2022 2:42 PM [facility] Station ID: [id number]
--- NOTE | 2022-11-27 15:41 | ED Physician Documentation ---
PD HPI CHEST PAIN - Stated complaint Stated Complaint: CHEST PX, SOA - Chief complaint Chief Complaint: Cardiac - History obtained from History obtained from: Patient - Additional information Additional information: 37-year-old woman with history of PVCs, was on atenolol for them but did not tolerate it due to lightheadedness has had increased PVCs overnight. She feels it as a symptomatic palpitations that kept her up. No real pain per se. No shortness of breath. She is cut caffeine out but nicotine is still an issue. 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: Hysterectomy - Present Medications Home Medications: Ambulatory Orders Medication Instructions Recorded Confirmed Omeprazole 20 mg PO DAILY 09/08/20 04/16/22 Cyclobenzaprine [Flexeril] 10 mg PO TID PRN #10 tablet 04/16/22 predniSONE [Deltasone] 60 mg PO DAILY 3 Days #9 tablet 04/16/22 diltiaZEM CD [Cardizem Cd] 120 mg PO DAILY 15 Days #15 cap 07/17/22 Meloxicam [Mobic] 7.5 mg PO BID PRN #20 tablet 10/02/22 diltiaZEM [Cardizem] 30 mg PO Q6H PRN #90 tablet 11/27/22 - Allergies Allergies/Adverse Reactions: Allergies Allergy/AdvReac Type Severity Reaction Status Date / Time Penicillins Allergy vomiting Verified 11/27/22 13:20 - Social History Does the pt smoke?: Yes Smoking Status: Current every day smoker Does the pt drink ETOH?: Yes Does the pt have substance abuse?: No - Immunizations Immunizations are current?: No Immunizations: Other immun not current - POLST Patient has POLST: No PD ED PE NORMAL - Vitals Vital signs reviewed: Yes - General General: Alert and oriented X 3, No acute distress - Cardiac Cardiac: RRR, No murmur - Respiratory Respiratory: No respiratory distress, Clear bilaterally - Abdomen Abdomen: Non tender - Back Back: No CVA TTP, No spinal TTP - Derm Derm: Normal color, Warm and dry - Extremities Extremities: No edema, No calf tenderness / cord - Neuro Neuro: Alert and oriented X 3, Normal speech Results - Vitals Vitals: Vital Signs - 24 hr 11/27/22 13:12 Temperature 36.4 C L Heart Rate 67 Respiratory 14 Rate Blood Pressure 118/82 H O2 Saturation 98 Oxygen O2 Source Room air - EKG (time done) 1317 Rate: Rate (enter#) (70) Rhythm: NSR [place]: Normal Intervals: Normal [place] QRS: Normal Ischemia: Normal ST segments - Labs Labs: Laboratory Tests 11/27/22 11/27/22 11/27/22 13:27 13:27 13:27 WBC 16.0 H RBC 4.24 Hgb 14.2 Hct 42.2 MCV 99.5 H MCH 33.5 H MCHC 33.6 RDW 13.0 Plt Count 296 MPV 9.5 Neut # (Auto) 11.3 H Lymph # (Auto) 3.9 H [place] # (Auto) 0.6 Eos # (Auto) 0.2 Baso # (Auto) 0.1 Absolute Nucleated RBC 0.00 Nucleated RBC % 0.0 Sodium 134 L Potassium 4.1 Chloride 101 Carbon Dioxide 27 Anion Gap 6.0 BUN 11 Creatinine 0.6 Estimated GFR (MDRD) 112 Glucose 93 Calcium 9.2 Total Bilirubin 0.8 AST 18 ALT 22 Alkaline Phosphatase 34 L Troponin I High Sens < 2.3 L Total Protein 7.1 Albumin 4.4 Globulin 2.7 Albumin/Globulin Ratio 1.6 Lipase 26 - Rads (name of study) 1v chest Radiology: Final report received, EMP read indepedently PD Medical Decision Making - ED course ED course: 37-year-old woman with known history of PVCs presents with symptomatic PVCs albeit no abnormality on EKG her exam now. She was advised to decrease or cease using nicotine. She did not tolerate beta-blockers in the past and we will trial Cardizem. Departure - Departure Disposition: Home, Self Care Clinical Impression: Palpitations Condition: Good Record reviewed to determine appropriate education?: Yes Instructions: ED Palpitations Prescriptions: diltiaZEM [Cardizem] 30 mg PO Q6H PRN #90 tablet PRN Reason: palpitations Comments: As discussed, nicotine may well be an inciting factor here and recommend you quit smoking. We are trialing Cardizem which is different than the medication you are on for the irregular heartbeat. He can just take it as needed. Follow- up with your doctor regardless, consider repeat cardiology evaluation and consultation as well. Forms: Activity restrictions
[2022-11-27 16:03] VITALS: BP 120/82
== END 2022-11-27 16:03 | disposition home or self-care (01) ==
LOC: ED 12:41
DX: R00.2 Palpitations (principal); F17.200 Nicotine dependence, unspecified, uncomplicated
CPT/HCPCS: 36415; 80053; 83690; 84484; 85025; 93005; 99284

== ENCOUNTER 2024-01-05 12:43 | Emergency (ER) | payer MEDICAID ==
[2024-01-05 13:02] VITALS: BP 126/82; O2SAT 95
--- NOTE | 2024-01-05 14:39 | ED Physician Documentation ---
PD HPI BACK PAIN - Stated complaint Stated Complaint: BACK PX - Chief complaint Chief Complaint: Back Pain - History obtained from History obtained from: Patient - History of Present Illness Timing - duration: Weeks (4) Timing - details: Gradual onset Pain level max: 6 Pain level now: 6 Location: Lower, Right, Left Quality: Pain, Spasm, Similar to prior episodes Associated symptoms: No: Fever, Weakness, Numbness, Incontinent of urine, Unable to urinate, Hematuria, Incontinent of stool Improves with: Rest Worsened by: Movement Contributing factors: No: Anticoagulated, Cancer, IVDA - Additional information Additional information: 38-year-old female presents to the emergency department with lower back pain. She states this started about 4 weeks ago when she slipped in mud at work. She states that she is having pain in the lumbar area. Worse with walking, better with rest. She states she tried the Biofreeze spray without relief. Today the pain started going down the left leg. No loss of bowel or bladder control. No fevers. No chills. No IV drug use. Denies any possibility of . She states that she cannot do steroids because she has had "reactions" to them in the past. Including cortisone shots and prednisone. She also states that she had a reaction to Toradol where it caused her to be unable to walk because of spasm for 24 hours. 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 : None HEENT: None, Other Psych: Anxiety Musculoskeletal: Fibromyalgia, Fatigue Derm: None - Past Surgical History Past Surgical History: Yes General: Appendectomy, Colonoscopy, EGD /SUPERVISOR STRIPPING: Hysterectomy - Present Medications Home Medications: Ambulatory Orders Medication Instructions Recorded Confirmed Omeprazole 20 mg PO DAILY 09/08/20 01/05/24 Cyclobenzaprine [Flexeril] 10 mg PO TID PRN #20 tablet 01/05/24 Oxycodone HCl/Acetaminophen 1 - 2 each PO Q6H PRN #14 tablet 01/05/24 [Percocet 5-325 mg Tablet] MDD 6 tabs - Allergies Allergies/Adverse Reactions: Allergies Allergy/AdvReac Type Severity Reaction Status Date / Time Penicillins Allergy vomiting Verified 01/05/24 12:56 - Social History Does the pt smoke?: Yes Smoking Status: Current every day smoker Does the pt drink ETOH?: Yes Does the pt have substance abuse?: No - Immunizations Immunizations are current?: No Immunizations: Other immun not current - POLST Patient has POLST: No PD ED PE NORMAL - Vitals Vital signs reviewed: Yes - General General: Alert and oriented X 3, No acute distress - HEENT HEENT: Moist mucous membranes - Neck Neck: Supple, no meningeal sign - Cardiac Cardiac: RRR - Respiratory Respiratory: No respiratory distress, Clear bilaterally - Abdomen Abdomen: Soft, Non tender, Non distended - Back Back: No spinal TTP, Other (No midline tenderness to palpation or percussion. No step-off or deformity. Mild paraspinal spasm in the lumbar.) - Derm Derm: Warm and dry - Extremities Extremities: No deformity, No edema, No calf tenderness / cord - Neuro Neuro: Alert and oriented X 3, technical translator 2-12 intact, No motor deficit, No sensory deficit, Other (Normal bilateral lower extremity patellar and ankle jerk reflexes. Normal great toe extension bilaterally. no saddle anesthesia) Eye Opening: Spontaneous Motor: Obeys Commands Verbal: Oriented GCS Score: 15 - Psych Psych: Normal mood, Normal affect Results - Vitals Vitals: Vital Signs - 24 hr 01/05/24 12:53 Temperature 36.2 C L Heart Rate 103 H Respiratory 18 Rate Blood Pressure 126/82 H O2 Saturation 95 Oxygen O2 Source Room air - Rads (name of study) L spine xray Relevant Findings:: Final report received, See rad report PD Medical Decision Making - ED course Complexity details: reviewed results, re-evaluated patient, considered differential (No cauda equina, no spinal epidural abscess, no fracture, no aortic dissection or evidence of aneursym rupture), d/w patient ED course: 38-year-old female presents to the emergency department with low back pain. On going for the past several weeks after a fall. No acute findings on x-ray. Normal reflexes. No evidence of cauda equina, epidural abscess. Pain well- controlled. Will continue supportive care, pain medication and have her follow- up with her PCP for further care. Ambulating well in the emergency department. Patient counseled regarding signs and symptoms for which I believe and urgent re-evaluation would be necessary. Patient with good understanding of and agreement to plan and is comfortable going home at this time This document was made in part using voice recognition software. While efforts are made to proofread this document, sound alike and grammatical errors may occur. Departure - Departure Disposition: 01 Home, Self Care Clinical Impression: Back pain Qualifiers: Back pain location: low back pain Chronicity: acute Back pain laterality: bilateral Sciatica presence: with sciatica Sciatica laterality: sciatica of left side Qualified Code(s): M54.42 - Lumbago with sciatica, left side Condition: Good Instructions: ED Low Back Pain Injury, ED Sciatica Follow-Up: Deandra Ascencio PA-C [Primary Care Provider] - Within 1 week Prescriptions: Cyclobenzaprine [Flexeril] 10 mg PO TID PRN #20 tablet PRN Reason: Spasms Oxycodone HCl/Acetaminophen [Percocet 5-325 mg Tablet] 1 - 2 each PO Q6H PRN #14 tablet MDD 6 tabs PRN Reason: pain Comments: Your prescriptions were sent to [facility] in [place]. Use the medications as needed for pain. Continue to gently stretch your back at home. Please follow- up with your doctor for further care, you may need to be referred to physical therapy. Your x-ray does not show any acute abnormalities. Please return if you worsen. I am prescribing a short course of narcotic pain medication for you. These are potentially dangerous and addictive medications that should be used carefully. These medications may constipate you. Take an aqav-gyo-mugdxxm stool softener (docusate) twice daily with plenty of water while taking these medications. If you go 24 hours without a bowel movement, take ebrq-rmx-ijjfjuz miralax, per package instructions. Do not drink or drive while taking these medications. If you received narcotic or sedating medications while in the emergency department, do not drive for 24 hours. Store this medication in a safe, secure place and out of reach of children. It is a violation of federal law to give or sell this medication to another pers on or to use in a manner other than prescribed. The ED will not refill narcotic prescriptions, including prescriptions lost or stolen. To dispose of unwanted medications: 1. [facility] at [address] in [place] has a medication drop box. They accept prescription medications (in pill form) Friday through Friday 9:00 a.m. to 5:00 p.m. 2. [facility] accepts prescription medications (in pill form only) for disposal year round. Call for more information. 3. Contact the [facility] for the next [facility] sponsored prescription drug collection event. , [phone], or [phone]; Discharge Date/Time: 01/05/24 16:08
--- NOTE | 2024-01-05 15:16 | XRAY Report ---
PROCEDURE: Lumbar Spine 2-3V INDICATIONS: low back pain s/p fall 4 weeks ago TECHNIQUE: 2 views of the lumbar spine were acquired. COMPARISON: 04/16/2021 FINDINGS: Bones: 5 lht-qar-czgycdq vertebrae are present. Minimal levocurvature. There is otherwise normal bon y alignment. Mild disc height loss at L5-S1 is stable compared to prior. No vertebral body compressi on fractures. No suspicious bony lesions. Soft tissues: Overlying bowel gas pattern is normal. No suspicious soft tissue calcifications. IMPRESSION: No acute osseous abnormalities. Reviewed by: Davin Newman MD on 01/05/2024 3:15 PM PST Approved by: Davin Newman MD on 01/05/2024 3:15 PM PST Station ID: [id number]
== END 2024-01-05 16:08 | disposition home or self-care (01) ==
LOC: ED 12:43
DX: M54.42 Lumbago with sciatica, left side (principal); I49.9 Cardiac arrhythmia, unspecified; M79.7 Fibromyalgia; F17.200 Nicotine dependence, unspecified, uncomplicated
CPT/HCPCS: 99283

== ENCOUNTER 2024-03-08 07:49 | Outpatient (CLI) | payer MEDICAID ==
[2024-03-08] MEDS ORDERED: GADOTERATE MEGLUMINE 7.5 MMOL/15 ML VIAL ONE (08:36)
--- NOTE | 2024-03-08 12:28 | MRI Report ---
PROCEDURE: Brain W/WO INDICATIONS: TREMOR CONTRAST: clariscan 13.6ml TECHNIQUE: Noncontrast axial T1 spin echo, axial T2 fast spin echo, sagittal and axial FLAIR, coronal T2 fast sp in echo, axial gradient echo, axial diffusion and ADC through the brain. After the administration of contrast, axial and coronal T1 spin echo with fat saturation through the brain. COMPARISON: Correlation is made with prior head CT angiogram, 09/03/2020 FINDINGS: Image quality: Excellent. CSF spaces: Basal cisterns are patent. No extra-axial fluid collections. Ventricles are normal in size and shape. Brain: No midline shift. No intracranial bleeds or masses. No abnormal intracranial enhancement. There is cerebral volume loss for age. There is periventricular white matter chronic small vessel is chemic change. The brainstem appears normal. Diffusion-weighted images demonstrate no acute ischemi c insults. No chronic ischemic insults. Normal intravascular flow voids are present. Skull and face: Calvarial marrow is normal in signal. Orbits appear normal. Sinuses: Sinuses and mastoids appear clear. IMPRESSION: Brain MRI within normal limits for age, without a cause of the patient's presenting history identifie d. No masses or abnormal enhancement can be seen. Reviewed by: Jorge Sarmiento MD on 03/08/2024 11:26 AM LEANN Approved by: Jorge Sarmiento MD on 03/08/2024 11:26 AM LEANN Station ID: [id number]
[2024-03-08] MEDS: GADOTERATE MEGLUMINE 7.5 MMOL/15 ML VIAL IVP ONE (14:07)
== END 2024-03-08 07:50 | disposition home or self-care (01) ==
LOC: DI 07:49
PROVIDERS: ATTEND Physician Assistant Medical
DX: G25.0 Essential tremor (principal)

== ENCOUNTER 2024-06-15 15:36 | Emergency (ER) | payer SELFPAY ==
[2024-06-15 16:23] LABS: BASOPHILS # (AUTO) 0.1 10^3/uL (0.0-0.1); BASOPHILS % (AUTO) 0.5 %; EOSINOPHILS # (AUTO) 0.1 10^3/uL (0.0-0.7); EOSINOPHILS % (AUTO) 1.1 %; HCT - HEMATOCRIT 40.1 % (37.0-47.0); HGB - HEMOGLOBIN 13.6 g/dL (12.0-16.0); LYMPHOCYTES # (AUTO) 4.2 10^3/uL (1.5-3.5); MEAN CORPUSCULAR HEMOGLOBIN 33.2 pg (27.0-31.0); MEAN CORPUSCULAR HGB CONC 33.9 g/dL (32.0-36.0); MEAN CORPUSCULAR VOLUME 97.8 fL (81.0-99.0); MONOCYTES # (AUTO) 0.4 10^3/uL (0.0-1.0); MONOCYTES % (AUTO) 3.6 %; NEUTROPHILS # (AUTO) 7.5 10^3/uL (1.5-6.6); NEUTROPHILS % (AUTO) 60.4 %; PLT - PLATELET COUNT 316 10^3/uL (130-450); RED CELL DISTRIBUTION WIDTH 12.6 % (12.0-15.0); WHITE BLOOD COUNT 12.3 x10^3/uL (4.8-10.8)
[2024-06-15 16:39] LABS: ALBUMIN 4.7 g/dL (3.2-5.5); ALBUMIN/GLOBULIN RATIO 2.4 (1.0-2.2); ALKALINE PHOSPHATASE 43 IU/L (42-121); ALT ALANINE AMINOTRANSFERASE 17 IU/L (10-60); AST ASPARTATE AMINOTRANSFERASE 13 IU/L (10-42); BILIRUBIN,TOTAL 0.4 mg/dL (0.2-1.0); BUN - BLOOD UREA NITROGEN 9 mg/dL (6-20); CALCIUM 9.6 mg/dL (8.5-10.3); CARBON DIOXIDE - CO2 30 mmol/L (21-32); CHLORIDE 101 mmol/L (101-111); CREATININE 0.6 mg/dL (0.6-1.3); GFR - MDRD 111 (>89); GLUCOSE 107 mg/dL (74-104); LIPASE 13 U/L (11-82); POTASSIUM 3.8 mmol/L (3.5-4.5); SODIUM 135 mmol/L (135-145); TOTAL PROTEIN 6.7 g/dL (6.4-8.9)
[2024-06-15 16:42] LABS: TROPONIN I HIGH SENSITIVITY < 2.3 ng/L (2.3-14.8)
--- NOTE | 2024-06-15 16:56 | XRAY Report ---
PROCEDURE: Chest 1V INDICATIONS: Chest pain TECHNIQUE: One view of the chest was acquired. COMPARISON: 11/27/2022 FINDINGS: Surgical changes and devices: None. Lungs and pleura: No pleural effusions or pneumothorax. Lungs are clear. Mediastinum: Mediastinal contours appear normal. Heart size is normal. Bones and chest wall: No suspicious bony lesions. Overlying soft tissues appear unremarkable. IMPRESSION: No acute cardiopulmonary process. Reviewed by: Hakeem Tolbert MD on 06/15/2024 4:55 PM PDT Approved by: Hakeem Tolbert MD on 06/15/2024 4:55 PM PDT Station ID: [id number]
--- NOTE | 2024-06-15 17:37 | ED Physician Documentation ---
History of Present Illness - Stated complaint Stated Complaint: DIZZY, HIGH HR - Chief complaint Chief Complaint: Cardiac - Additonal information Additional information: Patient is a 39-year-old female presenting to the emergency department with episodes of dizziness palpitations lightheadedness presyncopal symptoms. She notes symptoms have been going on for months. She had Holter monitor performed in February but has not received the results yet. She notes it was done at [facility] but she follows with her primary care doctor for the symptoms. She called her primary care doctor's office today and inquiring about the results but was told to come here due to persistent symptoms. She does feel like her symptoms are worsening but she is better able to manage them and knows when they are going to come on. She notes that her heart rate will accelerate on her Fitbit. She is able to calm down she has never fainted from these episodes. She denies any past medical history of arrhythmias or coronary artery disease. She has not take anything for symptoms at this time. 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: Hysterectomy - Present Medications Home Medications: Ambulatory Orders Medication Instructions Recorded Confirmed Omeprazole 20 mg PO DAILY 09/08/20 06/15/24 Cyclobenzaprine [Flexeril] 10 mg PO HS 06/15/24 06/15/24 - Allergies Allergies/Adverse Reactions: Allergies Allergy/AdvReac Type Severity Reaction Status Date / Time Penicillins Allergy vomiting Verified 06/15/24 15:55 - Social History Does the pt smoke?: Yes Smoking Status: Current every day smoker Does the pt drink ETOH?: Yes Does the pt have substance abuse?: No - Immunizations Immunizations are current?: No Immunizations: Other immun not current - POLST Patient has POLST: No PD ED PE NORMAL - Vitals Vital signs reviewed: Yes - General General: Alert and oriented X 3 - HEENT HEENT: Atraumatic, PERRL, EOMI, Ears normal - Neck Neck: Supple, no meningeal sign, No bony TTP, No JVD - Cardiac Cardiac: RRR, No murmur, No gallop, No rub, Strong equal pulses - Respiratory Respiratory: No respiratory distress, Clear bilaterally - Abdomen Abdomen: Normal bowel sounds, Soft, Non tender, Non distended - Derm Derm: Normal color, No rash - Extremities Extremities: No deformity - Neuro Neuro: Alert and oriented X 3 Results - Vitals Vitals: Vital Signs - 24 hr 06/15/24 06/15/24 15:51 17:31 Temperature 36.4 C L 36.9 C Heart Rate 89 71 Respiratory 19 22 Rate Blood Pressure 129/85 H 135/98 H O2 Saturation 100 99 Oxygen O2 Source Room air - EKG (time done) 1600 EKG releavant findings:: EKG personally interpreted by author of this note. Relevant findings are: Rate: Rate (enter#) Rhythm: NSR [place]: Normal Intervals: Normal [place] QRS: Normal Compare to prior EKG: Unchanged from prior EKG - Labs Labs: Laboratory Tests 06/15/24 06/15/24 06/15/24 16:17 16:17 16:17 WBC 12.3 H RBC 4.10 L Hgb 13.6 Hct 40.1 MCV 97.8 MCH 33.2 H MCHC 33.9 RDW 12.6 Plt Count 316 MPV 9.0 Neut # (Auto) 7.5 H Lymph # (Auto) 4.2 H [place] # (Auto) 0.4 Eos # (Auto) 0.1 Baso # (Auto) 0.1 Absolute Nucleated RBC 0.00 Nucleated RBC % 0.0 Sodium 135 Potassium 3.8 Chloride 101 Carbon Dioxide 30 Anion Gap 4.0 L BUN 9 Creatinine 0.6 Estimated GFR (MDRD) 111 Glucose 107 H Calcium 9.6 Total Bilirubin 0.4 AST 13 ALT 17 Alkaline Phosphatase 43 Troponin I High Sens < 2.3 L Total Protein 6.7 Albumin 4.7 Globulin 2.0 L Albumin/Globulin Ratio 2.4 H Lipase 13 TSH 0.83 - Rads (name of study) Chest X-ray Relevant Findings:: EMP independent interpretation of test (NO acute cardiopulmonary process) PD Medical Decision Making - ED course Complexity details: reviewed old records, reviewed results, re-evaluated patient, d/w patient ED course: Patient is a 39-year-old female presenting to the emergency department with lightheadedness and palpitation symptoms. Symptoms have been going on for months that she had a Holter monitor back in February but has not received the results yet she follows with her primary care doctor for this does not see a outpatient coder she denies any chest pain shortness of breath associate with her symptoms. She notes she has been better able to handle the symptoms but when she called her primary care doctor's office today and told them symptoms were worsening and they instructed her to come here. Vitals on arrival are reassuring she is afebrile nontachycardic normotensive. She denies any symptoms at this time. She has not found anything that makes her symptoms worse. Normal cardiac and lung sounds on auscultation. Pulses intact in upper and lower extremities no significant lower leg swelling or recent travel. Labs obtained here in the emergency department show no acute findings. Troponin EKG shows no signs of ACS normal sinus rhythm no signs of arrhythmias. Mild leukocytosis chest x-ray shows no signs of pneumonia could be incidental finding as patient denies any flulike symptoms and that she has been feeling fine otherwise. Patient monitored here in the emergency department while TSH was being obtained she remained on monitor. No findings of arrhythmias or palpitations while patient was here in the emergency department. TSH is within normal range. Discussed with patient reassuring results will have her follow-up with cardiology and her PCP in outpatient setting she was instructed to return if she develops any chest pain shortness of breath leg swelling or persistent palpitations. Patient un derstands and is agreeable with this plan. Departure - Departure Disposition: 01 Home, Self Care Clinical Impression: Lightheadedness, Palpitations, Dehydration Condition: Good Follow-Up: Joaquin Hoff MD [Physician No Access] - Paulette Baptiste ARNP [Physician No Access] - Comments: You were seen here in the emergency department for your symptoms of lightheadedness and heart palpitations your workup here was reassuring showing no acute changes reviewed your imaging and no acute findings you need to follow- up with your PCP in the outpatient setting I have given you a new referral to see a outpatient coder in the outpatient setting as well. Forms: PCP List
[2024-06-15 19:18] VITALS: BP 129/90; O2SAT 100
== END 2024-06-15 19:12 | disposition home or self-care (01) ==
LOC: ED 15:36
DX: R42 Dizziness and giddiness (principal); R00.2 Palpitations; E86.0 Dehydration; M79.7 Fibromyalgia; F17.200 Nicotine dependence, unspecified, uncomplicated
CPT/HCPCS: 36415; 80053; 83690; 84443; 84484; 85025; 93005; 99283; 99284